=== PATIENT | female | born 1955 | race Caucasian/White ===

== ENCOUNTER 2018-08-16 08:58 | Inpatient (IN) ==
[2018-08-16] MEDS ORDERED: ALBUTEROL/IPRATROPIUM 3 ML NEB RESP TX STA (09:23)
[2018-08-16] MEDS ORDERED: fentaNYL 100 MCG/2 ML VIAL IV STA (09:23)
[2018-08-16 10:06] LABS: Basophils # 0.1 10*3/uL (0.0-0.2); Basophils % 0.3 % (0.0-0.8); Eosinophils # 4.3 10*3/uL (0.0-0.87); Eosinophils % 14.3 % (0.00-10.9); Hematocrit 42.5 VOL% (35.7-47.0); Hemoglobin 13.8 GM/DL (12.0-16.0); Immature Granulocytes % 4.4 %; Immature Granulocytes Absolute 1.32 #; Lymphocytes # 1.6 10*3/uL (1.4-4.0); Lymphocytes % 5.2 % (21.3-54.2); Mean Corpuscular HGB Conc 32.5 GM/DL (32-36); Mean Corpuscular Volume 89.5 FL (87-102); Monocytes % 6.6 % (1.7-12.7); Neutrophils % 69.2 % (38.7-73.9); Platelet Count 105 T/CUMM (130-400); Red Blood Count 4.75 MC/CUMM (3.8-5.5); Red Cell Distribution Width 13.3 % (9.3-17.3); White Blood Count 30.3 T/CUMM (4-12)
[2018-08-16] MEDS ORDERED: VANCOMYCIN INJ 1,000 MG in SODIUM CHLORIDE 0.9% 250 ML IV STA (10:10)
[2018-08-16 10:17] LABS: INR 1.2; PT Patient Result 12.7 SECS; Partial Thromboplastin Time 24.3 SECS (0-40)
[2018-08-16 10:28] LABS: Band Neutrophils 22 % (0-10); Eosinophils 18 % (0-10); Hypochromasia 1+; Lymphocytes 1 % (20-55); Myelocytes 1 %; Platelet Estimate Decreased; Segmented Neutrophils 56 % (50-85); Total Cells Counted 100
[2018-08-16 10:31] LABS: Albumin 2.5 G/DL (3.4-5.0); Bilirubin,Total 0.7 MG/DL (0.2-1.0); CKMB % 12.1 %; Calcium 7.9 MG/DL (8.5-10.1); Osmolality,Calculated 269.5 MOS/KG (273-304); Total Protein 6.1 G/DL (6.4-8.3)
[2018-08-16 10:33] LABS: Troponin I 3.88 NG/ML (0.00-0.045)
[2018-08-16 10:44] LABS: Apearance,Urine CLEAR (Clear); Bacteria,Urine Occasional /HPF (Few); Bilirubin,Urine Negative (Negative); Blood, Urine Moderate mg/dL (Negative); Glucose,Urine (UA) Negative (Negative); Hyaline Casts,Urine 4 /LPF (0-3); Ketones,Urine 20 mg/dL (Negative); Mucus,Urine Occasional /LPF (Occasional); Nitrite,Urine Negative (Negative); Protein,Urine 30 MG/DL; RBC,Urine 2 /HPF (0-4); Squamous Epithelial Cell,Urine Occasional /HPF (0-10); Urine Color Amber (Yellow); Urine Specific Gravity 1.026 (1.001-1.035); WBC,Urine 1 /HPF (0-6)
[2018-08-16] MEDS ORDERED: METOPROLOL TARTRATE 25 MG TABLET PO ONE (12:39)
[2018-08-16 13:49] LABS: Albumin 2.6 G/DL (3.4-5.0); Bilirubin,Direct 0.28 MG/DL (0.0-0.20); Bilirubin,Indirect 0.4 MG/DL (0.0-1.0); Bilirubin,Total 0.7 MG/DL (0.2-1.0); Total Protein 6.1 G/DL (6.4-8.3)
[2018-08-16] MEDS: SODIUM CHLORIDE 0.9% 1,000 ML IV SCH (14:52)
[2018-08-16] MEDS: ISOSORBIDE MONONITRATE 30 MG TABLET PO SCH (14:52)
[2018-08-16] MEDS: ENOXAPARIN 40 MG/0.4 ML SYRINGE SUBCUT SCH (14:53)
[2018-08-16] MEDS: MORPHINE 4 MG/1 ML VIAL IV PRN ×2 (14:53→20:07)
[2018-08-16] MEDS: ALBUTEROL/IPRATROPIUM 3 ML NEB RESP TX SCH ×3 (14:53→22:55)
[2018-08-16] MEDS: PIPERACILLIN/TAZOBACTAM 3,375 MG in SODIUM CHLORIDE 0.9% 100 ML IV SCH ×2 (14:53→22:00)
[2018-08-16] MEDS: FAMOTIDINE 20 MG/2 ML VIAL IV SCH (19:54)
[2018-08-16] MEDS: DEXAMETHASONE 4 MG/1 ML VIAL IV SCH (19:58)
[2018-08-17] MEDS: DEXAMETHASONE 4 MG/1 ML VIAL IV SCH ×4 (01:35→19:43)
[2018-08-17] MEDS: MORPHINE 4 MG/1 ML VIAL IV PRN ×4 (01:40→21:10)
[2018-08-17] MEDS: ALBUTEROL/IPRATROPIUM 3 ML NEB RESP TX SCH ×6 (02:34→23:11)
[2018-08-17 05:14] LABS: Basophils # 0.2 10*3/uL (0.0-0.2); Basophils % 0.8 % (0.0-0.8); Eosinophils # 1.3 10*3/uL (0.0-0.87); Eosinophils % 5.4 % (0.00-10.9); Hematocrit 37.1 VOL% (35.7-47.0); Hemoglobin 11.9 GM/DL (12.0-16.0); Immature Granulocytes % 5.5 %; Immature Granulocytes Absolute 1.28 #; Lymphocytes # 1.1 10*3/uL (1.4-4.0); Lymphocytes % 4.7 % (21.3-54.2); Mean Corpuscular HGB Conc 32.1 GM/DL (32-36); Mean Corpuscular Volume 90.5 FL (87-102); Mean Platelet Volume 12.3 FL (9.6-12.0); Monocytes % 3.5 % (1.7-12.7); Neutrophils % 80.1 % (38.7-73.9); Platelet Count 104 T/CUMM (130-400); Red Cell Distribution Width 13.6 % (9.3-17.3); White Blood Count 23.2 T/CUMM (4-12)
[2018-08-17 05:23] LABS: Calcium 7.8 MG/DL (8.5-10.1)
[2018-08-17 05:43] LABS: Band Neutrophils 15 % (0-10); Eosinophils 1 % (0-10); Lymphocytes 4 % (20-55); Platelet Estimate Decreased; Segmented Neutrophils 74 % (50-85); Total Cells Counted 100
[2018-08-17 05:45] LABS: Hypochromasia 2+
[2018-08-17] MEDS: PIPERACILLIN/TAZOBACTAM 3,375 MG in SODIUM CHLORIDE 0.9% 100 ML IV SCH ×3 (05:45→20:54)
[2018-08-17] MEDS: ASPIRIN EC 325 MG TABLET PO SCH (08:36)
[2018-08-17] MEDS: ISOSORBIDE MONONITRATE 30 MG TABLET PO SCH (08:36)
[2018-08-17] MEDS: METOPROLOL TARTRATE 25 MG TABLET PO SCH (08:36)
[2018-08-17] MEDS: FAMOTIDINE 20 MG/2 ML VIAL IV SCH ×2 (08:58→19:43)
[2018-08-17] MEDS: ONDANSETRON 4 MG/2 ML VIAL IV PRN (10:54)
[2018-08-17] MEDS ORDERED: ISOSORBIDE MONONITRATE 30 MG TABLET PO ONE (12:14)
[2018-08-17] MEDS: SODIUM CHLORIDE 0.9% 1,000 ML IV SCH (14:50)
[2018-08-18] MEDS: DEXAMETHASONE 4 MG/1 ML VIAL IV SCH ×4 (01:36→22:32)
[2018-08-18] MEDS: SODIUM CHLORIDE 0.9% 1,000 ML IV SCH ×2 (04:48→18:23)
[2018-08-18] MEDS: ALBUTEROL/IPRATROPIUM 3 ML NEB RESP TX SCH ×6 (04:59→23:36)
[2018-08-18] MEDS: PIPERACILLIN/TAZOBACTAM 3,375 MG in SODIUM CHLORIDE 0.9% 100 ML IV SCH ×3 (05:09→21:43)
[2018-08-18 05:34] LABS: Basophils # 0.1 10*3/uL (0.0-0.2); Basophils % 0.2 % (0.0-0.8); Eosinophils % 3.2 % (0.00-10.9); Hematocrit 35.3 VOL% (35.7-47.0); Hemoglobin 11.2 GM/DL (12.0-16.0); Immature Granulocytes % 8.4 %; Lymphocytes # 1.5 10*3/uL (1.4-4.0); Lymphocytes % 4.7 % (21.3-54.2); Mean Corpuscular HGB Conc 31.7 GM/DL (32-36); Mean Platelet Volume 12.1 FL (9.6-12.0); Neutrophils % 77.5 % (38.7-73.9); Red Blood Count 3.88 MC/CUMM (3.8-5.5); Red Cell Distribution Width 13.8 % (9.3-17.3); White Blood Count 32.2 T/CUMM (4-12)
[2018-08-18 05:39] LABS: Platelet Count 87 T/CUMM (130-400)
[2018-08-18 06:03] LABS: Band Neutrophils 24 % (0-10); Hypochromasia 1+; Lymphocytes 2 % (20-55); Platelet Estimate Decreased; Segmented Neutrophils 72 % (50-85); Total Cells Counted 100
[2018-08-18 07:02] LABS: Osmolality,Calculated 283.7 MOS/KG (273-304)
[2018-08-18] MEDS: FAMOTIDINE 20 MG/2 ML VIAL IV SCH ×2 (08:34→20:43)
[2018-08-18] MEDS: MORPHINE 4 MG/1 ML VIAL IV PRN (08:35)
[2018-08-18] MEDS: ASPIRIN EC 325 MG TABLET PO SCH ×2 (08:36→09:01)
[2018-08-18] MEDS: ISOSORBIDE MONONITRATE 30 MG TABLET PO SCH ×2 (08:36→09:02)
[2018-08-18] MEDS: METOPROLOL TARTRATE 25 MG TABLET PO SCH ×2 (08:36→09:01)
[2018-08-18] MEDS ORDERED: LORazepam 2 MG/1 ML VIAL IV PRN (08:53)
[2018-08-18] MEDS ORDERED: HYDROmorphone 2 MG/1 ML VIAL IV PRN (09:33)
[2018-08-18] MEDS: LORazepam 2 MG/1 ML VIAL IV PRN ×3 (11:02→20:43)
[2018-08-18] MEDS: ENOXAPARIN 40 MG/0.4 ML SYRINGE SUBCUT SCH (11:35)
[2018-08-18] MEDS: ONDANSETRON 4 MG/2 ML VIAL IV PRN (14:01)
[2018-08-19] MEDS: SODIUM CHLORIDE 0.9% 1,000 ML IV SCH (02:31)
[2018-08-19] MEDS: ALBUTEROL/IPRATROPIUM 3 ML NEB RESP TX SCH ×6 (03:17→19:45)
[2018-08-19] MEDS: PIPERACILLIN/TAZOBACTAM 3,375 MG in SODIUM CHLORIDE 0.9% 100 ML IV SCH (04:32)
[2018-08-19] MEDS: LORazepam 2 MG/1 ML VIAL IV PRN (04:32)
[2018-08-19 04:57] LABS: Calcium 8.2 MG/DL (8.5-10.1); Osmolality,Calculated 295.3 MOS/KG (273-304)
[2018-08-19 06:15] LABS: Basophils # 0.3 10*3/uL (0.0-0.2); Basophils % 0.9 % (0.0-0.8); Eosinophils # 0.8 10*3/uL (0.0-0.87); Eosinophils % 2.5 % (0.00-10.9); Hemoglobin 11.1 GM/DL (12.0-16.0); Immature Granulocytes % 10.1 %; Immature Granulocytes Absolute 3.34 #; Lymphocytes # 2.2 10*3/uL (1.4-4.0); Lymphocytes % 6.6 % (21.3-54.2); Mean Corpuscular HGB Conc 31.7 GM/DL (32-36); Mean Corpuscular Volume 91.1 FL (87-102); Monocytes % 5.9 % (1.7-12.7); NRBC # 0.58 10*3/uL; Red Blood Count 3.84 MC/CUMM (3.8-5.5); Red Cell Distribution Width 14.1 % (9.3-17.3); White Blood Count 33.1 T/CUMM (4-12)
[2018-08-19 06:25] LABS: Platelet Count 21 T/CUMM (130-400)
[2018-08-19 06:37] LABS: Band Neutrophils 6 % (0-10); Eosinophils 2 % (0-10); Hypochromasia 1+; Lymphocytes 6 % (20-55); Nucleated Red Blood Cells 3 (0-5); Ovalocytes Slight; Platelet Estimate Decreased; Segmented Neutrophils 81 % (50-85); Total Cells Counted 100
[2018-08-19] MEDS ORDERED: FUROSEMIDE 20 MG/2 ML VIAL IV ONE (06:55)
[2018-08-19] MEDS ORDERED: ISOSORBIDE MONONITRATE 30 MG TABLET PO SCH (06:57)
[2018-08-19] MEDS: FAMOTIDINE 20 MG/2 ML VIAL IV SCH ×2 (07:16→20:25)
[2018-08-19] MEDS: DEXAMETHASONE 4 MG/1 ML VIAL IV SCH ×2 (08:15→20:28)
[2018-08-19] MEDS ORDERED: MORPHINE 4 MG/1 ML VIAL IV PRN (08:47)
[2018-08-19] MEDS: METOPROLOL TARTRATE 25 MG TABLET PO SCH (09:23)
[2018-08-19] MEDS: ASPIRIN EC 325 MG TABLET PO SCH (09:23)
[2018-08-19] MEDS: MEROPENEM 500 MG in SODIUM CHLORIDE 0.9% 100 ML IV SCH ×2 (10:03→17:15)
[2018-08-20 00:20] VITALS: BP 86/65
== END 2018-08-19 21:31 | disposition expired ==
LOC: N.ED 08:58 → SUATTDRO 12:19 → N.EDINP 12:19 → N.TELES 12:51
PROVIDERS: ADMIT Phlebology; ATTEND Internal Medicine